=== PATIENT | female | born 1965 | race Caucasian/White ===

== ENCOUNTER 2016-07-05 10:01 | Inpatient (IN) ==
[2016-07-05] MEDS ORDERED: DUONEB NEB STA ×2 (10:08→10:25)
[2016-07-05] MEDS ORDERED: SOLU-MEDROL 125 MG IVP STA (10:25)
[2016-07-05 10:39] LABS: BASOPHILS # (AUTO) 0.1 K/uL (0-0.2); BASOPHILS % (AUTO) 1.1 % (0.0-3.0); EOSINOPHILS # (AUTO) 1.5 K/ul (0.0-0.7); EOSINOPHILS % (AUTO) 12.2 % (0.0-7.0); HEMATOCRIT 38.5 % (37.0-47.0); HEMOGLOBIN 12.2 g/dl (12.0-16.0); IMMATURE GRANULOCYTE % (AUTO) 0.5 % (0.0-5.0); LYMPHOCYTES # (AUTO) 2.3 K/uL (0.60-3.4); LYMPHOCYTES % (AUTO) 18.4 (10.0-50.0); MEAN CORPUSCULAR HEMOGLOBIN 25.7 pg (27.0-31.0); MEAN CORPUSCULAR HGB CONC 31.7 (31.8-35.4); MEAN CORPUSCULAR VOLUME 81.1 fl (81.0-99.0); MONOCYTES # (AUTO) 0.9 K/uL (0.4-2.0); MONOCYTES % (AUTO) 7.5 (0-10); NEUTROPHILS # (AUTO) 7.4 K/ul (2.0-6.9); NEUTROPHILS % (AUTO) 60.3; PLATELET COUNT 386 10^3/uL (140-440); RED BLOOD COUNT 4.75 10^6/ul (4.20-5.40); WHITE BLOOD COUNT 12.32 K/ul (4.6-10.2)
--- NOTE | 2016-07-05 11:02 | DI ---
EXAM: Two-view chest HISTORY: Shortness of breath TECHNIQUE: Frontal and lateral views of the chest were obtained. FINDINGS: The heart is normal size. Lungs are clear. The pulmonary vasculature appears normal. T he osseous structures and mediastinal contours are normal. IMPRESSION: No active cardiopulmonary disease.
[2016-07-05 11:04] LABS: FLU INTERNAL QC INTERNAL QC VALID; RAPID FLU A NEGATIVE (NEGATIVE); RAPID FLU B NEGATIVE (NEGATIVE)
[2016-07-05 11:07] LABS: ALANINE AMINOTRANSFERASE 19 U/L (12-78); ALBUMIN 3.5 g/dL (3.4-5.0); ALKALINE PHOSPHATASE 137 U/L (42-98); ANION GAP 9.5; ASPARTATE AMINO TRANSFERASE 13 U/L (15-37); BILIRUBIN,TOTAL 0.28 mg/dL (0.00-1.20); BLOOD UREA NITROGEN 14 mg/dL (7-18); BUN/CREATININE RATIO 18.91; CALCIUM 9.2 mg/dL (8.2-10.2); CARBON DIOXIDE 28 mmol/L (21-32); CHLORIDE 107 mmol/L (98-107); CREATINE KINASE 27 U/L; CREATININE 0.74 mg/dL (0.60-1.30); GLUCOSE 90 mg/dL (70-110); POTASSIUM 3.5 mmol/L (3.5-5.10); SODIUM 141 mmol/L (136-145)
--- NOTE | 2016-07-05 13:44 | CT ---
EXAM: CT scan of the chest without contrast HISTORY: Shortness of breath TECHNIQUE: Imaging of the chest was performed without intravenous contrast. 5 mm thin axial images and coronal and sagittal reconstructions were provided for interpretation. FINDINGS: The heart is normal size. Lungs are clear. No mediastinal abnormalities are seen. No l ytic or blastic lesions are seen within the osseous structures. There is a horseshoe kidney. IMPRESSION: No acute abnormalities are seen within the thorax.2
--- NOTE | 2016-07-05 13:47 | ED.PDOC ---
General ED Provider: Dr. ANNA RICHARDS Chief Complaint: Shortness of Air Stated Complaint: short of air Time Seen by Physician: 10:00 Mode of Arrival: Walk-In Information Source: Patient Exam Limitations: No limitations Primary Care Provider: MARTINA CALLOWAY Nursing and Triage Documentation Reviewed and Agree: Yes Respiratory Complaint Exam - Respiratory Complaint/Exam Symptoms Are: Still present Timing: Constant Initial Severity: Moderate Current Severity: Mild Location: Chest Character: Reports: Non-productive cough Aggravating: Reports: None Alleviating: Reports: Bronchodilators Associated Signs and Symptoms: Denies: Rapid breathing, Dyspnea, Fever, Chills, Chest pain, Pleuritic chest pain, Wheezing, Hemoptysis, Dizziness, Calf pain, Calf swelling, Edema, URI, Nasal congestion, Hoarseness, Sinus discomfort, Vomiting, Sore throat, Weight loss, Decreased oral intake, Increased thirst, Increased appetite, Increased urination Related History: Reports: Similar episode History of Healthcare-Acquired Pneumonia: No Pulmonary Embolism Risk Factors: None Cardiac Risk Factors: Reports: None Pseudomonas Risk Factors: Reports: None Tuberculosis Risk Factors: Reports: None Status Asthmaticus Risk Factors: Reports: None Home Oxygen Use: No Recent Stress Test: No Recent Echo/LV Function: No Current Antibiotic Use: No Current Asthma Medication Use: No Respiratory Distress: Mild Inadequate Respiratory Effort: No Dysphagia Present: No Stridor Present: No JVD Present: No Accessory Muscle Use: No Retractions: Not Present Diminished Breath Sounds: No Prolonged Respiration: Expiratory phase Sinus Tenderness: None Grunting Respirations: No Kussmaul Respirations: No Differential Diagnoses: Asthma, Pulmonary Edema, Pneumonia, Bronchitis Review of Systems - Review Of Systems Constitutional: Reports: No symptoms Eyes: Reports: No symptoms Ears, Nose, Mouth, Throat: Reports: No symptoms Respiratory: Reports: Cough, Wheezing Cardiac: Reports: No symptoms GI: Reports: No symptoms : Reports: No symptoms Musculoskeletal: Reports: No symptoms Skin: Reports: No symptoms Neurological: Reports: No symptoms Endocrine: Reports: No symptoms Hematologic/Lymphatic: Reports: No symptoms All Other Systems: Reviewed and Negative Past Medical History - Past Medical History Previously Healthy: Yes Endocrine: Reports: None Cardiovascular: Reports: None Respiratory: Reports: None Hematological: Reports: None Gastrointestinal: Reports: None Genitourinary: Reports: None Neuro/Psych: Reports: None Musculoskeletal: Reports: None Cancer: Reports: None Last Menstrual Period: n/a - Surgical History General Surgical History: Reports: - Family History Family History: Reports: Unknown - Social History Smoking Status: Former smoker Hx Substance Use: No Alcohol Screening: Occasionally Physical Exam - Physical Exam Appearance: Well-appearing, No pain distress, Well-nourished Eyes: IVETTE, EOMI, Conjunctiva clear ENT: Ears normal, Nose normal, Oropharynx normal Respiratory: Wheezes Cardiovascular: RRR, Pulses normal, No rub, No murmur GI/: Soft, Nontender, No masses, Bowel sounds normal, No Organomegaly Musculoskeletal: Normal strength, ROM intact, No edema, No calf tenderness Skin: Warm, Dry, Normal color Neurological: Sensation intact, Motor intact, Reflexes intact, Cranial nerves intact, Alert, Oriented Psychiatric: Affect appropriate, Mood appropriate Physician Notification - Case Discussed Physician Notified: hostpitalist saw pt in E/D Time of Notification: 13:47 Critical Care Note - Critical Care Note Total Time (mins): 0 Course - Course Hematology/Chemistry: 07/05/16 10:30 07/05/16 10:30 Orders, Labs, Meds: Lab Review 07/05/16 07/05/16 10:30 10:40 WBC 12.32 H RBC 4.75 Hgb 12.2 Hct 38.5 MCV 81.1 MCH 25.7 L MCHC 31.7 L RDW Coeff of Babar 16.7 H Plt Count 386 Immature Gran % (Auto) 0.5 Neut % (Auto) 60.3 Lymph % (Auto) 18.4 [place] % (Auto) 7.5 Eos % (Auto) 12.2 H Baso % (Auto) 1.1 Immature Gran # (Auto) 0.1 Neut # 7.4 H Lymph # 2.3 [place] # 0.9 Eos # 1.5 H Baso # 0.1 D-Dimer 0.33 Sodium 141 Potassium 3.5 Chloride 107 Carbon Dioxide 28 Anion Gap 9.5 BUN 14 Creatinine 0.74 Estimated GFR (MDRD) 82.00 BUN/Creatinine Ratio 18.91 Glucose 90 Calcium 9.2 Total Bilirubin 0.28 AST 13 L ALT 19 Alkaline Phosphatase 137 H Total Creatine Kinase 27 Troponin I < 0.0100 B-Natriuretic Peptide 41 Total Protein 7.0 Albumin 3.5 Globulin 3.5 Albumin/Globulin Ratio 1.00 Influenza A (Rapid) Negative Influenza B (Rapid) Negative Orders Category Date Time Status EKG-(ED ONLY) Stat CARDIO 07/05/16 10:24 Completed NEBULIZER TREATMENT Stat CARDIO 07/05/16 10:08 Completed ED IV/MEDIPORT/POWERPORT .ONCE EMERGENCY 07/05/16 10:24 Active B-TYPE NATRIURETIC PEPTIDE Stat LAB 07/05/16 10:30 Completed CBC W/ AUTO DIFF Stat LAB 07/05/16 10:30 Completed COMPREHENSIVE METABOLIC PANEL Stat LAB 07/05/16 10:30 Completed CREATINE KINASE Stat LAB 07/05/16 10:30 Completed D-DIMER Stat LAB 07/05/16 10:30 Completed MOLECULAR GROUP A STREP Stat LAB 07/05/16 10:40 Results RAPID FLU A/B Stat LAB 07/05/16 10:40 Completed STREP SCREEN Stat LAB 07/05/16 10:40 Results TROPONIN I Stat LAB 07/05/16 10:30 Completed 0.9 % Sodium Chloride [Saline Flush] MEDS 07/05/16 10:24 Active 1 syr IVF PRN PRN Ipratropium/Albuterol Neb [Duoneb] MEDS 07/05/16 10:08 Discontinued 1 vial NEB ONCE STA Ipratropium/Albuterol Neb [Duoneb] MEDS 07/05/16 10:25 Discontinued 1 vial NEB ONCE STA Methylprednisolone Sod Succ/Pf [Solu-Medrol 125 mg] MEDS 07/05/16 10:25 Discontinued 125 mg IVP ONCE STA CHEST, 2 VIEWS PA & LAT Stat RADS 07/05/16 10:[address] CHEST W/O CONTRAST Stat RADS 07/05/16 12:19 Completed Medications Generic Name Dose Route Start Last Admin Trade Name Freq PRN Reason Stop Dose Admin Sodium Chloride 1 syr 07/05/16 10:24 07/05/16 10:39 Saline Flush IVF 1 syr PRN PRN Administration To flush IV Discontinued Medications Generic Name Dose Route Start Last Admin Trade Name Freq PRN Reason Stop Dose Admin Albuterol/Ipratropium 1 vial 07/05/16 10:08 07/05/16 10:13 Duoneb NEB 07/05/16 10:09 1 vial ONCE STA Administration Albuterol/Ipratropium 1 vial 07/05/16 10:25 07/05/16 12:33 Duoneb NEB 07/05/16 10:26 Not Given ONCE STA Methylprednisolone Sodium Succinate 125 mg 07/05/16 10:25 07/05/16 10:37 Solu-Medrol 125 Mg IVP 07/05/16 10:26 125 mg ONCE STA Administration Vital Signs: Temp Pulse Resp BP Pulse Ox 07/05/16 10:02 97.3 F L 106 H 24 165/101 H 98 Departure - Departure Time of Disposition: 13:58 Disposition: ADMITTED INPATIENT Discharge Problem: Shortness of breath, Bronchitis Condition: Good Pt referred to PMD for follow-up: Yes (ADMITTED) Allergies/Adverse Reactions: Allergies cyclobenzaprine HCl [From Flexeril] Adverse Reaction (Verified 07/05/16 10:05) piperacillin sodium [From Zosyn] Adverse Reaction (Verified 07/05/16 10:05) tazobactam sodium [From Zosyn] Adverse Reaction (Verified 07/05/16 10:05) Home Medications: Ambulatory Orders Albuterol Sulfate [Proair Hfa] 2 puff IH Q6H 07/05/16 Azithromycin [Zithromax] 250 mg PO DAILY 07/05/16 Prednisone 30 mg PO DAILYWM 07/05/16 Disposition Discussed With: Patient, Family
[2016-07-05] MEDS ORDERED: ROCEPHIN ONE (14:06)
[2016-07-05] MEDS: ROCEPHIN 1 GM in SODIUM CHLORIDE 50 ML IV SCH (14:11)
[2016-07-05] MEDS ORDERED: ZITHROMAX PO SCH (14:30)
[2016-07-05 15:26] VITALS: BMI 39.4
[2016-07-05] MEDS: SODIUM CHLORIDE 1,000 ML IV SCH (15:54)
[2016-07-05] MEDS ORDERED: AVELOX 400 MG in PREMIX 250 ML NS 1 BAG IV SCH (17:00)
[2016-07-05] MEDS: DUONEB NEB SCH ×2 (18:23→23:18)
[2016-07-05 20:24] LABS: CREATINE KINASE 37 U/L
[2016-07-05] MEDS: SOLU-MEDROL 40 MG IVP SCH (20:31)
[2016-07-06] MEDS: SODIUM CHLORIDE 1,000 ML IV SCH ×2 (03:55→17:52)
[2016-07-06 04:39] LABS: BASOPHILS % (AUTO) 0.2 % (0.0-3.0); HEMATOCRIT 38.1 % (37.0-47.0); HEMOGLOBIN 11.7 g/dl (12.0-16.0); IMMATURE GRANULOCYTE % (AUTO) 0.7 % (0.0-5.0); LYMPHOCYTES # (AUTO) 1.1 K/uL (0.60-3.4); LYMPHOCYTES % (AUTO) 9.1 (10.0-50.0); MEAN CORPUSCULAR HEMOGLOBIN 24.9 pg (27.0-31.0); MEAN CORPUSCULAR HGB CONC 30.7 (31.8-35.4); MEAN CORPUSCULAR VOLUME 81.1 fl (81.0-99.0); MONOCYTES # (AUTO) 0.3 K/uL (0.4-2.0); MONOCYTES % (AUTO) 2.5 (0-10); NEUTROPHILS # (AUTO) 10.3 K/ul (2.0-6.9); NEUTROPHILS % (AUTO) 87.5; PLATELET COUNT 391 10^3/uL (140-440)
[2016-07-06] MEDS: SOLU-MEDROL 40 MG IVP SCH ×3 (04:51→20:46)
[2016-07-06 04:55] LABS: ALBUMIN 3.3 g/dL (3.4-5.0); ANION GAP 13.2; BILIRUBIN,TOTAL 0.27 mg/dL (0.00-1.20); BUN/CREATININE RATIO 19.11; CALCIUM 9.4 mg/dL (8.2-10.2); CREATININE 0.68 mg/dL (0.60-1.30); POTASSIUM 4.2 mmol/L (3.5-5.10); TOTAL PROTEIN 6.6 g/dL (6.4-8.2)
[2016-07-06 05:01] LABS: CREATINE KINASE 27 U/L
[2016-07-06] MEDS: DUONEB NEB SCH ×4 (05:37→22:50)
[2016-07-06] MEDS: ROCEPHIN 1 GM in SODIUM CHLORIDE 50 ML IV SCH (08:53)
[2016-07-06] MEDS: AVELOX 400 MG in PREMIX 250 ML NS 1 BAG IV SCH (20:44)
[2016-07-07] MEDS: SOLU-MEDROL 40 MG IVP SCH ×3 (04:45→20:42)
[2016-07-07] MEDS: DUONEB NEB SCH ×4 (05:20→23:00)
[2016-07-07 06:09] LABS: BASOPHILS % (AUTO) 0.2 % (0.0-3.0); EOSINOPHILS % (AUTO) 0.1 % (0.0-7.0); HEMATOCRIT 39.9 % (37.0-47.0); HEMOGLOBIN 12.2 g/dl (12.0-16.0); IMMATURE GRANULOCYTE % (AUTO) 2.7 % (0.0-5.0); LYMPHOCYTES # (AUTO) 1.2 K/uL (0.60-3.4); LYMPHOCYTES % (AUTO) 7.3 (10.0-50.0); MEAN CORPUSCULAR HEMOGLOBIN 25.1 pg (27.0-31.0); MEAN CORPUSCULAR HGB CONC 30.6 (31.8-35.4); MEAN CORPUSCULAR VOLUME 82.1 fl (81.0-99.0); MONOCYTES # (AUTO) 0.6 K/uL (0.4-2.0); MONOCYTES % (AUTO) 3.4 (0-10); NEUTROPHILS # (AUTO) 14.6 K/ul (2.0-6.9); NEUTROPHILS % (AUTO) 86.3; PLATELET COUNT 401 10^3/uL (140-440); RED BLOOD COUNT 4.86 10^6/ul (4.20-5.40); WHITE BLOOD COUNT 16.89 K/ul (4.6-10.2)
[2016-07-07 06:32] LABS: ALBUMIN 3.4 g/dL (3.4-5.0); ALBUMIN/GLOBULIN RATIO 0.97; ANION GAP 14.3; BILIRUBIN,TOTAL 0.21 mg/dL (0.00-1.20); BUN/CREATININE RATIO 22.22; CALCIUM 9.5 mg/dL (8.2-10.2); CREATININE 0.72 mg/dL (0.60-1.30); POTASSIUM 4.3 mmol/L (3.5-5.10); TOTAL PROTEIN 6.9 g/dL (6.4-8.2)
[2016-07-07] MEDS: ROCEPHIN 1 GM in SODIUM CHLORIDE 50 ML IV SCH (09:04)
--- NOTE | 2016-07-07 09:46 | DI ---
EXAM: Chest two views HISTORY: Wheezing FINDINGS: PA and lateral views of the chest were obtained and demonstrates the lungs to be well exp anded and appear clear. There is no evidence of focal infiltrate, consolidate nor concerning pulmon remington nodule or mass. Heart, pleura, wild, mediastinum, and pulmonary vascular lung markings appeared normal. The osseous structures are without significant abnormality. IMPRESSION: No active cardiac or pulmonary disease. No significant changes compared to the prior s tudy from 07/05/2016.
[2016-07-07] MEDS: SODIUM CHLORIDE 1,000 ML IV SCH (10:21)
--- NOTE | 2016-07-07 15:55 | CT ---
EXAM: CT abdomen and pelvis without contrast. HISTORY: Elevated alkaline phosphatase. TECHNIQUE: Transaxial CT performed lung bases through the pubic symphysis 3 mm slice thickness with out contrast. Coronal and sagittal reformatted imaging obtained.. COMPARISON: CT chest 07/05/2016. FINDINGS: Visualized lung bases show no pleural effusion or acute pneumonic consolidation. Bone wi ndow imaging shows no discrete lytic or blastic lesions. Marked discogenic disease L5-S1. Gallbladder decompressed. 13 mm cyst left hepatic lobe. Spleen within normal limits size. Pancrea s of normal morphology. Both adrenal glands within normal limit in appearance. Stomach minimally d istended with air-fluid level. No high-grade small bowel obstruction. No free intra-abdominal air. No abdominal or pelvic ascites. Some colonic diverticulosis. Appendix normal. Abdominal aorta normal caliber. Horseshoe kidney. No radiopaque renal calculi. No hydronephrosis. . No hydroureter. No radiopaque ureteral calculi. Bladder minimally distended without radiopaque bladder calculi. Uterus present. Both ovaries thought to remain no enlarged abdominal or pelvic ly mphadenopathy.. IMPRESSION: Gallbladder decompressed. 13 mm cyst left hepatic lobe. Appendix normal. No high-grade bowel obstruction. No ascites. No free intra-abdominal air. Colonic diverticulosis. Horseshoe kidney. No hydronephrosis or hydroureter. Marked discogenic disease L5-S1.
[2016-07-07] MEDS: AVELOX 400 MG in PREMIX 250 ML NS 1 BAG IV SCH (20:37)
[2016-07-08] MEDS: SODIUM CHLORIDE 1,000 ML IV SCH ×2 (01:40→15:55)
[2016-07-08] MEDS: SOLU-MEDROL 40 MG IVP SCH ×2 (04:05→14:21)
[2016-07-08] MEDS: DUONEB NEB SCH ×2 (05:15→11:30)
[2016-07-08] MEDS: ROCEPHIN 1 GM in SODIUM CHLORIDE 50 ML IV SCH (08:23)
[2016-07-08 10:46] VITALS: BP 140/75; TEMP 97.4
--- NOTE | 2016-07-09 07:23 | HP ---
CHIEF COMPLAINT: "I am short of breath." SOURCE OF HISTORY: HISTORY OF PRESENT ILLNESS: The patient had been experiencing some shortness of breath over the last two months and uses a Ventolin inhaler two puffs with relievf of the shortness of breath. The patient, about two days ago began to have more shortness of breath with some chills and a chilly sensation about 06/27/16 or 06/28/16 and presented to the emergency room on 06/29/16. The patient was noted to have cough and wheezing on auscultation with a normal WBC. CT chest without contrast - without any acute cardiopulmonary process. The patient was prescribed Zithromax, Z-pack and Prednisone 30 mg daily and to continue Ventolin inhaler two puffs every 6 hours. The patient presented to the emergency room again on because of increasing shortness of breath with wheezing. The patient was subsequently admitted after workup. Temperature on presentation to the emergency room was 97.3, pulse rate 106, respiratory rate 24, sat 98% on room air, BP 165/101. Chest CT at this time also did not reveal any acute cardiopulmonary process. PAST PERSONAL HISTORY: section times two, anemia, depression, cellulitis right leg and bronchitis some 20 years ago. Family member maternal side had kidney problems. Paternal side had history of cancer. SOCIAL HISTORY: The patient is with grown children and resides with her . She does work at [employer]. She use to smoke but stopped several years ago and does have occasional alcohol. She denies any drug abuse. MEDICATIONS: (Prior to this admission) 1. Zithromax 250 mg daily 2. Prednisone 30 mg daily 3. Albuterol Sulfate two puffs q.6hr p.r.n. ALLERGIES: FLEXERIL, PENICILLIN REVIEW OF SYSTEMS: CONSTITUTIONAL: The patient is alert, oriented, denies any fever or chills lately but some fatigue because of shortness of breath. HOSPITAL ADMISSIONS OFFICER: No headache, no seizure disorder, no ataxia. VISUAL: The patient denies any blurred vision, double vision or transient loss of vision. AUDITORY: Hearing is adequate. No pain or tinnitus. No drainage. RESPIRATORY: The patient has cough, dry or nonproductive with shortness of breath and some wheezing. CARDIOVASCULAR: Denies any chest pain or chest tightness or chest oppression. GASTROINTESTINAL: Appetite remained fair. No nausea, no diarrhea, no abdominal pain. GENITOURINARY: The patient denies any pain, frequency or urgency of urination. MUSCULOSKELETAL: Denies any significant joint pain including lumbar pain. ENDOCRINE: Negative. HEMATOLOGIC: Negative. No history of prolonged bleeding. INTEGUMENT: Denies any rash, pruritus or continuous ecchymosis. PSYCHIATRIC: Affect is normal. The patient has history of depression. PHYSICAL EXAMINATION: GENERAL: 51-year-old female seen in the emergency room and subsequently admitted because of shortness of breath with expiratory and inspiratory wheezing. The patient was seen at the [facility]/16 and was medicated with Prednisone 30 mg daily and Zithromax 250 mg daily. The problem had persisted in spite of the above medication. VITAL SIGNS: Temperature 97.3, pulse 106, BP 165/101, respiratory rate 24, oxygen saturation 98 on room air. The patient is 5'9 1/2 inches, 270 pounds and 9.6 ozs. BMI 39.4. HEAD: Unremarkable. Face is symmetrical and equal with no facial weakness. No redness in the face. No significant tenderness in the frontomaxillary sinus areas. EYES: Pupils equal/reactive to light about 3 mm in size. MOUTH: Unremarkable. THROAT: No inflammation, tumors or exudate. NECK: No masses. No adenopathy. No bruit. No rigidity. CHEST: Essentially symmetrical and equal with good expansion and no remarkable tenderness. LUNGS: Breath sounds are heard on both sides with no obvious rales but does have inspiratory plus expiratory wheeze. HEART: Audible and regular with good tones. No murmurs. ABDOMEN: Somewhat protuberant and soft with no remarkable tenderness. No guarding. Bowel sounds are active. No masses palpable. LOWER EXTREMITIES: Popliteal and posterior leg areas are nontender to palpation. Pedal pulses are present. The right posterior tibial pulse is somewhat diminished. UPPER EXTREMITIES: Symmetrical and equal. ASSESSMENT: 1. VIRAL BRONCHITIS, PROBABLE. 2. ASTHMA, QUESTIONABLE. 3. ELEVATED ALKALINE PHOSPHATASE, SOURCE UNDETERMINED. 4. MARKEDLY ELEVATED BMI 39.4. MTDD
--- NOTE | 2016-07-09 09:36 | DS ---
PATIENT IDENTIFICATION: 51-year-old female , who works at the [employer] system was seen in the emergency room on 06/29/16, and was medicated with Zithromax 250 mg daily and Prednisone 30 mg daily. The patient continued to have problems in spite of the medications and again presented to the emergency room on 07/05/2016 , because of wheezing and shortness of breath. The workup showed WBC of 12,320, MCV lower normal, MCH 25.7 below normal. RDW 16.7 to 17.2. EOS elevated to 12.2. D. dimer normal 0.33. Alkaline phosphatase 137. The rest of the chemistries are normal. The patient had a chest x-ray requested by Dr. Rouse showing no acute or active cardiopulmonary disease and I did suggest a chest CT since this problem had been ongoing for some time. The chest CT on 07/05/16, showed no acute abnormalities in the lungs. She received Solu-Medrol 125 mg IV in the emergency room and nebulizer consisting of Duonebs times two. I did see this patient in the emergency room after admission and during the time the patient did have persistent expiratory wheezing after the medication was given. The patient, while in the hospital, remained afebrile and the blood pressure returned to normal except once on 07/07/16 where the blood pressure was 156/89 and also 150/82. The patient's heart rate during the elevated blood pressures were also slightly higher. Ausculation on 07/06 revealed very minimal expiratory wheeze and was clear on 07/07 as well as on discharge on 07/08. NECK: No masses, no bruit. HEART: Audible and regular with good tones, no murmurs. LOWER EXTREMITIES: No tenderness in the calf muscles and pedal pulses are present except right posterior tibial pulse is diminished. The patient, during this admission received Rocephin 1 gm daily and Avelox 400 mg intravenously daily. The patient was given Duoneb nebulizer one vial q.6hr. Solu-Medrol was continued on 40 mg every 8 hours IV. The patient, at time of discharge, was alert, ambulatory with no chest pain or abdominal pain and is eager to go home. She denied any wheezing or shortness of breath. The patient's lungs indeed are clear to auscultation on both sides without any inspiratory or expiratory wheeze. The heart is audible and regular with good tones. Lower extremities have no tenderness in the calf muscle. The patient, on discharge, is continued on Avelox for the next 5 days. She was prescribed Prednisone 5 mg tablet #10 one tablet twice a day for 3 days and then one a day until finished. She should followup with her primary physician. The patient was given a note not to return to work until released by her family physician. She should be seen at least by Saturday as she is going back to work on Saturday. The CT scan of the abdomen and pelvis done, because of elevated alkaline phosphatase, showed no significant abnormalities. This patient was given a copy of the CT scan as well as a copy of the labs showing elevated alkaline phosphatase. I did inform her that I had ordered an alkaline phosphatase isoenzyme, influenza A and B antibody titer, CMV antibody titer and Bailey- Weinberg virus. No results are available at this time. FINAL ASSESSMENT: 1. CHRONIC BRONCHITIS WITH ACUTE EXACERBATION MAYBE VIRAL. 2. ELEVATED ALKALINE PHOSPHATASE ETIOLOGY UNDETERMINED. 3. ELEVATED BMI. 4. HISTORY OF SMOKING. 5. HISTORY OF ALLERGIES, FLEXERIL AND PENICILLIN PLUS TAZOBACTAM. MTDD
[2016-07-11 13:11] LABS: ALKALINE PHOSPHATASE, S 140 IU/L (39-117)
--- NOTE | 2016-07-11 14:14 | PN ---
DATE OF VISIT: 07/06/16 The patient is alert,ambulatory with good color. No dyspnea, nor tachypnea. LUNGS: Clear to auscultation in both sides and no wheezing. HEART: Audible and regular with good tones. VITAL SIGNS: At 5:51 p.m., temperature 97.6, pulse 84, blood pressure 122/80, respiratory rate 18, oxygen saturation 98 on room air. Appetite appears to be good and she did eat 100% of the meals. Labs showed 16,890 WBC and was elevated on admission. This patient, however, had been treated for about one week prior to this admission. The patient received Azithromycin 250 mg daily, Prednisone 20 mg daily and ProAir two puffs every 6 hours. The patient's condition did not improve. Alkaline phosphatase today is 130, 137 yesterday. I need to look back on her previous chemistries to see if this enzyme had been elevated. This patient is 270 pounds and 5'9 1/ 2 ", BMI 39.4. [facility]
--- NOTE | 2016-07-11 14:25 | PN ---
DATE OF VISIT: 07/07/16 The patient is alert and oriented times four. Not dyspneic, nor tachypneic and no cyanosis. Her cough is much less. She seemed to be disappointed that she is not going home today. LUNGS: Clear to auscultation in both sides. HEART: Normal sinus rhythm. VITAL SIGNS: At 2:00 in the afternoon today, temperature 96.8, pulse 87, blood pressure 146/88, respiratory rate 20, oxygen saturation 98 at room air. The alkaline phosphatase remained elevated at 129. I looked back at her previous chemistries and she indeed had elevation of the alkaline phosphatase since 2014. It had been rising slowly from that time. I had discussed the possible sources of elevated alkaline phosphatase with the patient. She did go to [place] and did learn something about it and she would go back again. I did tell her that sometimes a fatty liver producing cirrhosis of the liver will reduce and increase the alkaline phosphatase. It also could come from the bone , intestine and pancreas. This patient, upon questioning further, does have nausea, post-prandial. She had been given a PPI by her provider. I did advise her that we need to do a CT scan of the abdomen and pelvis without contrast and that she might need further testing for this problem. Again, the lungs are clear to auscultation. The heart is normal sinus rhythm. No wheezing in the lungs. I told the patient that we might discharge her tomorrow. FERNANDO
[2016-07-11 14:34] LABS: INTESTINAL FRAC.: 4 % (0-18)
== END 2016-07-08 15:45 | disposition home or self-care (01) | DRG 203 ==
LOC: ED 10:01 → MEDSURG B 13:51
PROVIDERS: ADMIT General Practice; ATTEND General Practice
DX: J20.8 Acute bronchitis due to other specified organisms (principal); J42 Unspecified chronic bronchitis; R74.8 Abnormal levels of other serum enzymes; R63.8 Other symptoms and signs concerning food and fluid intake; Z68.39 Body mass index [BMI] 39.0-39.9, adult; Z87.891 Personal history of nicotine dependence; Z88.0 Allergy status to penicillin; Z88.8 Allergy status to other drugs, medicaments and biological substances; Z86.59 Personal history of other mental and behavioral disorders
CPT/HCPCS: 36415; 80053; 82550; 83880; 84075; 84080; 84484; 85025; 85379; 86644; 86663; 86664; 86710; 87651; 87804; 87880; 93005; 93010; 94640; 96365; 96375; 99223; 99232; 99239; 99284

== ENCOUNTER 2016-07-31 06:58 | Emergency (ER) ==
[2016-07-31 07:03] VITALS: BP 150/96; TEMP 97.7; BMI 39.9
[2016-07-31] MEDS ORDERED: SOLU-CORTEF 250 MG IVP STA (07:14)
[2016-07-31] MEDS ORDERED: DUONEB NEB STA ×2 (07:14→09:12)
[2016-07-31 07:34] LABS: BASOPHILS # (AUTO) 0.1 K/uL (0-0.2); BASOPHILS % (AUTO) 1.4 % (0.0-3.0); EOSINOPHILS # (AUTO) 1.3 K/ul (0.0-0.7); EOSINOPHILS % (AUTO) 16.3 % (0.0-7.0); HEMATOCRIT 39.1 % (37.0-47.0); HEMOGLOBIN 12.5 g/dl (12.0-16.0); IMMATURE GRANULOCYTE % (AUTO) 0.3 % (0.0-5.0); LYMPHOCYTES # (AUTO) 1.4 K/uL (0.60-3.4); LYMPHOCYTES % (AUTO) 17.7 (10.0-50.0); MEAN CORPUSCULAR HEMOGLOBIN 26.2 pg (27.0-31.0); MEAN CORPUSCULAR VOLUME 81.8 fl (81.0-99.0); MONOCYTES # (AUTO) 0.6 K/uL (0.4-2.0); MONOCYTES % (AUTO) 7.1 (0-10); NEUTROPHILS # (AUTO) 4.5 K/ul (2.0-6.9); NEUTROPHILS % (AUTO) 57.2; PLATELET COUNT 347 10^3/uL (140-440); RED BLOOD COUNT 4.78 10^6/ul (4.20-5.40); WHITE BLOOD COUNT 7.78 K/ul (4.6-10.2)
[2016-07-31 07:43] LABS: ALLEN TEST Pos
[2016-07-31 07:44] LABS: ABG BASE EXCESS 0 (-2.0-2.0); ABG HCO3 24.6 (22.0-26.0); ABG TCO2 26 (22.0-28.0)
[2016-07-31 07:58] LABS: ALANINE AMINOTRANSFERASE 35 U/L (12-78); ALBUMIN 3.5 g/dL (3.4-5.0); ALBUMIN/GLOBULIN RATIO 0.97; ALKALINE PHOSPHATASE 151 U/L (42-98); ASPARTATE AMINO TRANSFERASE 29 U/L (15-37); BILIRUBIN,TOTAL 0.35 mg/dL (0.00-1.20); BLOOD UREA NITROGEN 11 mg/dL (7-18); BUN/CREATININE RATIO 14.47; CALCIUM 9.7 mg/dL (8.2-10.2); CARBON DIOXIDE 24 mmol/L (21-32); CHLORIDE 106 mmol/L (98-107); CREATINE KINASE 77 U/L; CREATININE 0.76 mg/dL (0.60-1.30); GLUCOSE 116 mg/dL (70-110); SODIUM 142 mmol/L (136-145); TOTAL PROTEIN 7.1 g/dL (6.4-8.2)
[2016-07-31 08:09] LABS: FLU INTERNAL QC INTERNAL QC VALID; RAPID FLU A NEGATIVE (NEGATIVE); RAPID FLU B NEGATIVE (NEGATIVE)
--- NOTE | 2016-07-31 08:59 | CT ---
EXAM: CTA CHEST (PE PROTOCOL) HISTORY: Shortness of breath TECHNIQUE: CTA with intravenous contrast. 3-mm axial sections. Coronal and sagittal reformations. 3-D reconstructions. 125 mL Omnipaque. COMPARISON: Unenhanced standard CT of the chest dated 07/05/2016 FINDINGS: No pulmonary arterial filling defect is identified. Thoracic aorta is within normal limits. Normal heart size. No mediastinal or hilar lymphadenopathy is suggested. Lungs are clear. No consolidations, vascular congestion, pneumothorax or pleural fluid. Bones reveal no acute abnormality. Incidental note of horseshoe architecture of the kidneys. IMPRESSION: 1. No pulmonary arterial thromboembolism is identified. 2. Lungs are clear.
--- NOTE | 2016-07-31 09:14 | ED.PDOC ---
General ED Provider: Dr. ANNA RICHARDS Chief Complaint: Respiratory Complaint Stated Complaint: cough, wheez Time Seen by Physician: 07:00 Mode of Arrival: Walk-In Information Source: Patient Exam Limitations: No limitations Primary Care Provider: MARTINA CALLOWAY Nursing and Triage Documentation Reviewed and Agree: Yes (seen with entire staff ) Respiratory Complaint Exam - Respiratory Complaint/Exam Onset/Duration: 7 days Symptoms Are: Still present Timing: Intermittent Initial Severity: Moderate Location: Chest Character: Reports: Non-productive cough Aggravating: Reports: None Alleviating: Reports: Bronchodilators, Spontaneous resolution Associated Signs and Symptoms: Denies: Rapid breathing, Dyspnea, Fever, Chills, Chest pain, Pleuritic chest pain, Wheezing, Hemoptysis, Dizziness, Calf pain, Calf swelling, Edema, URI, Nasal congestion, Hoarseness, Sinus discomfort, Vomiting, Sore throat, Weight loss, Decreased oral intake, Increased thirst, Increased appetite, Increased urination Related History: Reports: Similar episode History of Healthcare-Acquired Pneumonia: No Related Surgical History: Reports: None Pulmonary Embolism Risk Factors: None Cardiac Risk Factors: Reports: None Pseudomonas Risk Factors: Reports: None Tuberculosis Risk Factors: Reports: None Status Asthmaticus Risk Factors: Reports: None Home Oxygen Use: No Recent Stress Test: No Recent Echo/LV Function: No Current Antibiotic Use: No Current Asthma Medication Use: No Respiratory Distress: None Inadequate Respiratory Effort: No Dysphagia Present: No Stridor Present: No JVD Present: No Accessory Muscle Use: No Retractions: Not Present Diminished Breath Sounds: No Sinus Tenderness: None Grunting Respirations: No Kussmaul Respirations: No Differential Diagnoses: COPD Exacerbation, Pneumonia, Bronchitis Review of Systems - Review Of Systems Constitutional: Reports: No symptoms Eyes: Reports: No symptoms Ears, Nose, Mouth, Throat: Reports: No symptoms Respiratory: Reports: Cough, Wheezing Cardiac: Reports: No symptoms GI: Reports: No symptoms : Reports: No symptoms Musculoskeletal: Reports: No symptoms Skin: Reports: No symptoms Neurological: Reports: No symptoms Endocrine: Reports: No symptoms Hematologic/Lymphatic: Reports: No symptoms All Other Systems: Reviewed and Negative Past Medical History - Past Medical History Previously Healthy: Yes Endocrine: Reports: None Cardiovascular: Reports: None Respiratory: Reports: None Hematological: Reports: None Gastrointestinal: Reports: None Genitourinary: Reports: None Neuro/Psych: Reports: None Musculoskeletal: Reports: None Cancer: Reports: None Last Menstrual Period: unk - Surgical History General Surgical History: Reports: - Family History Family History: Reports: Unknown - Social History Smoking Status: Former smoker Hx Substance Use: No Alcohol Screening: Occasionally Physical Exam - Physical Exam Appearance: Well-appearing, No pain distress, Well-nourished Eyes: IVETTE, EOMI, Conjunctiva clear ENT: Ears normal, Nose normal, Oropharynx normal Respiratory: Airway patent, Breath sounds clear, Breath sounds equal, Respirations nonlabored Cardiovascular: RRR, Pulses normal, No rub, No murmur GI/: Soft, Nontender, No masses, Bowel sounds normal, No Organomegaly Musculoskeletal: Normal strength, ROM intact, No edema, No calf tenderness Skin: Warm, Dry, Normal color Neurological: Sensation intact, Motor intact, Reflexes intact, Cranial nerves intact, Alert, Oriented Psychiatric: Affect appropriate, Mood appropriate Interpretation - Radiology Interpretation Radiology Interpretation By: Radiologist Radiology Results: No acute changes Critical Care Note - Critical Care Note Total Time (mins): 0 Course - Course Hematology/Chemistry: 07/31/16 07:30 07/31/16 07:30 Orders, Labs, Meds: Lab Review 07/31/16 07/31/16 07/31/16 07:30 07:35 07:40 WBC 7.78 RBC 4.78 Hgb 12.5 Hct 39.1 MCV 81.8 MCH 26.2 L MCHC 32.0 RDW Coeff of Babar 16.0 H Plt Count 347 Immature Gran % (Auto) 0.3 Neut % (Auto) 57.2 Lymph % (Auto) 17.7 Pershing % (Auto) 7.1 Eos % (Auto) 16.3 H Baso % (Auto) 1.4 Immature Gran # (Auto) 0.0 Neut # 4.5 Lymph # 1.4 Pershing # 0.6 Eos # 1.3 H Baso # 0.1 D-Dimer 0.47 Puncture Site R rad O2 Saturation 97.0 ABG pH 7.430 ABG pCO2 37.0 ABG pO2 86.0 ABG HCO3 24.6 ABG Total CO2 26 ABG Base Excess 0 Song Test Pos FiO2 % 21.0 Sodium 142 Potassium 4.0 Chloride 106 Carbon Dioxide 24 Anion Gap 16.0 BUN 11 Creatinine 0.76 Estimated GFR (MDRD) 80.00 BUN/Creatinine Ratio 14.47 Glucose 116 H Calcium 9.7 Total Bilirubin 0.35 AST 29 ALT 35 Alkaline Phosphatase 151 H Total Creatine Kinase 77 Troponin I < 0.0100 B-Natriuretic Peptide < 10 Total Protein 7.1 Albumin 3.5 Globulin 3.6 Albumin/Globulin Ratio 0.97 Influenza A (Rapid) Negative Influenza B (Rapid) Negative Orders Category Date Time Status ABG DRAW REQUEST Stat CARDIO 07/31/16 07:16 Completed EKG-(ED ONLY) Stat CARDIO 07/31/16 07:17 Completed NEBULIZER TREATMENT Stat CARDIO 07/31/16 07:14 Completed NPO REMINDER: IMAGING ONCE CARE 07/31/16 07:16 Active ED IV/MEDIPORT/POWERPORT .ONCE EMERGENCY 07/31/16 07:36 Active ABG Stat LAB 07/31/16 07:35 Completed B-TYPE NATRIURETIC PEPTIDE Stat LAB 07/31/16 07:30 Completed CBC W/ AUTO DIFF Stat LAB 07/31/16 07:30 Completed COMPREHENSIVE METABOLIC PANEL Stat LAB 07/31/16 07:30 Completed CREATINE KINASE Stat LAB 07/31/16 07:30 Completed D-DIMER Stat LAB 07/31/16 07:30 Completed MOLECULAR GROUP A STREP Stat LAB 07/31/16 07:40 Results RAPID FLU A/B Stat LAB 07/31/16 07:40 Completed STREP SCREEN Stat LAB 07/31/16 07:40 Results TROPONIN I Stat LAB 07/31/16 07:30 Completed 0.9 % Sodium Chloride [Saline Flush] MEDS 07/31/16 07:36 Active 1 syr IVF PRN PRN Hydrocortisone Sod Succ/Pf [Solu-Cortef 250 mg] MEDS 07/31/16 07:14 Discontinued 125 mg IVP ONCE STA Ipratropium/Albuterol Neb [Duoneb] MEDS 07/31/16 07:14 Discontinued 1 vial NEB ONCE STA CT CHEST PE PROTOCOL Stat RADS 07/31/16 07:15 Completed Medications Generic Name Dose Route Start Last Admin Trade Name Freq PRN Reason Stop Dose Admin Sodium Chloride 1 syr 07/31/16 07:36 Saline Flush IVF PRN PRN To flush IV Discontinued Medications Generic Name Dose Route Start Last Admin Trade Name Freq PRN Reason Stop Dose Admin Albuterol/Ipratropium 1 vial 07/31/16 07:14 07/31/16 07:17 Duoneb NEB 07/31/16 07:15 1 vial ONCE STA Administration Hydrocortisone Sodium Succinate 125 mg 07/31/16 07:14 07/31/16 07:50 Solu-Cortef 250 Mg IVP 07/31/16 07:15 125 mg ONCE STA Administration Vital Signs: Temp Pulse Resp BP Pulse Ox 07/31/16 06:58 97.7 F 124 H 26 H 150/96 H 97 Departure - Departure Time of Disposition: 09:15 Disposition: HOME SELF-CARE Discharge Problem: Shortness of breath Instructions: How Your Lungs Work (ED), Dyspnea (ED) Condition: Good Pt referred to PMD for follow-up: No Additional Instructions: Please call your Family Physician as soon as possible to schedule a follow-up appointment. Allergies/Adverse Reactions: Allergies cyclobenzaprine HCl [From Flexeril] Adverse Reaction (Verified 07/31/16 07:03) piperacillin sodium [From Zosyn] Adverse Reaction (Verified 07/31/16 07:03) sulfamethoxazole [From Bactrim] Adverse Reaction (Verified 07/31/16 07:03) tazobactam sodium [From Zosyn] Adverse Reaction (Verified 07/31/16 07:03) trimethoprim [From Bactrim] Adverse Reaction (Verified 07/31/16 07:03) Home Medications: Ambulatory Orders Albuterol Sulfate [Proair Hfa] 2 puff IH Q6H 07/05/16 Amoxicillin 500 mg PO BID 07/31/16 Methylprednisolone [Medrol Dosepak] 4 mg PO DIRECTED #1 pkg 07/31/16
== END 2016-07-31 09:38 | disposition home or self-care (01) ==
LOC: ED 06:58
DX: R06.02 Shortness of breath (principal); R05 Cough; R06.2 Wheezing
CPT/HCPCS: 36415; 80053; 82550; 82803; 83880; 84484; 85025; 85379; 87651; 87804; 87880; 93005; 93010; 94640; 96374; 99284

== ENCOUNTER 2017-06-19 09:56 | Outpatient (CLI) ==
[2017-06-19 10:34] LABS: FLU INTERNAL QC INTERNAL QC VALID; RAPID FLU A NEGATIVE (NEGATIVE); RAPID FLU B NEGATIVE (NEGATIVE)
== END 2017-06-19 09:57 | disposition home or self-care (01) ==
LOC: LAB 09:56
PROVIDERS: ATTEND Emergency Medicine
DX: J02.9 Acute pharyngitis, unspecified (principal); R51 Headache; R52 Pain, unspecified
CPT/HCPCS: 87651; 87804; 87880